=== PATIENT | female | born 1955 | race Caucasian/White ===

== ENCOUNTER → 2021-06-22 08:02 | Outpatient (CLI) | payer SELFPAY ==
--- NOTE | 2021-06-22 08:15 | MRI_ITS ---
STUDY: MRI LUMBAR SPINE WITHOUT CONTRAST REASON FOR EXAM: Female, 65 years old. R LEG PAIN, LOW BACK PAIN TECHNIQUE: Standardized fat and water weighted pulse sequences were obtained in the sagittal and axial planes. COMPARISON: None FINDINGS: T10-T11: (Sagittal only). Normal endplates. Normal disc height, hydration and morphology. No ventral extradural defect. Normal central canal and bilateral intervertebral neural foramina. Ovoid benign focal fatty infiltration in the central T11 vertebral body. T11-T12: Normal T11 inferior endplate. Mild compression fracture of the upper T12 vertebral body with moderate amount of bone edema underneath the superior endplate. There is minimal bone edema in the upper left T12 pedicle. Intact right T12 pedicle. Increased disc space height due to the compression fracture of the upper T12 vertebral body. Mild bilateral degenerative facet arthropathy. Normal central canal and bilateral lateral recesses. Normal bilateral intervertebral neural foramina. 4.1 x 3.8 cm solid mass in the left adrenal gland is visible at this level. T12-L1: Normal endplates. Normal disc height, hydration and morphology. Normal bilateral facet joints. Normal central canal and bilateral lateral recesses. Normal bilateral intervertebral neural foramina. Normal lumbar lordosis. There is no substantial scoliosis. Normal conus medullaris that terminates at the lower L1 vertebral body level. L1-2: Normal endplates. Moderate disc space height narrowing. Small posterior annular bulging disc. Normal facet joints. Normal central canal and bilateral lateral recesses. Normal bilateral intervertebral neural foramina. Small ovoid benign focal fatty infiltration in the left side of the L2 vertebral body. Left renal cysts are visible at this level. L2-3: Normal endplates. Moderate disc space height narrowing. Small posterior bulging disc. Mild bilateral degenerative facet arthropathy. Moderate central canal stenosis with an AP canal diameter of 7 mm. Normal bilateral lateral recesses. Normal bilateral intervertebral neural foramina. L3-4: Normal endplates. Normal disc height, hydration and morphology. Moderate central canal stenosis with an AP canal diameter of 7.6 mm. Mild dorsal epidural lipomatosis. Mild left degenerative facet arthropathy. Normal right facet joint. Normal bilateral lateral recesses. Normal bilateral intervertebral neural foramina. L4-5: Normal endplates. Pronounced disc space height narrowing. Round benign focal fatty infiltration in the right upper L5 vertebral body. Right L4 hemilaminotomy defect with mild posterior bulging of the thecal sac. Normal central canal and bilateral lateral recesses. Mild left iterative facet arthropathy. Normal right facet joint. Normal bilateral intervertebral neural foramina. L5-S1: Normal endplates. Pronounced disc space height narrowing. Small posterior bulging disc. Moderately pronounced central canal stenosis with an AP canal diameter of 6.1 mm surrounded by minimal epidural lipomatosis. Normal bilateral lateral recesses. Mild asymmetric degenerative facet arthropathy. Mild stenosis of the bilateral intervertebral neural foramina. Normal visualized sacral ala. Normal visualized paraspinous soft tissue structures. MRI/Spine Lumbar (Routine) IMPRESSION: 1. Mild recent compression fracture of the upper T12 vertebral body accounting for moderate the vertebral marrow edema underneath the T12 superior endplate. The bone edema extends minimally to the left upper T12 pedicle. If patient has debilitating back pain referrable to this site, this is feasible for kyphoplasty. 2. 4.1 x 3.8 cm solid mass in the left adrenal gland. 3. No MRI evidence of lumbar extruded disc fragment. 4. Moderate central canal stenosis at L3-L4 disc space level with an AP canal diameter of 7.6 mm. 5. Moderately pronounced central canal stenosis at L5-S1 disc space level with an AP canal diameter of 6.1 mm secondary to developmentally short pedicles and surrounded by minimal epidural lipomatosis. 6. Right L4 hemilaminotomy defect with mild posterior bulging of the thecal sac. Electronically Signed: David Murphy MD at 12:06 EDT , Service support ,
== END ==
PROVIDERS: PCP Family Medicine; Referring Provider Family Medicine; Visit Provider Family Medicine
DX: M54.50 Low back pain, unspecified (principal); M79.604 Pain in right leg; R20.0 Anesthesia of skin
CPT/HCPCS: 72148